=== PATIENT | female | born 1980 | race African-American/Black ===

== ENCOUNTER 2019-03-09 15:44 | Emergency (ER) | payer OTHER ==
[~2019-03-09] VITALS: Ht 154.9 cm; Wt 81.7 kg
[2019-03-09] MEDS ORDERED: DEXACIDIN EYE DR5 ML OPHTHALMIC (17:09)
[2019-03-09 17:44] VITALS: BP 114/72
== END 2019-03-09 17:45 | disposition home or self-care (01) ==
LOC: ER 15:44
DX: S05.01XA Injury of conjunctiva and corneal abrasion without foreign body, right eye, initial encounter (principal); H57.11 Ocular pain, right eye; Z88.0 Allergy status to penicillin; W51.XXXA Accidental striking against or bumped into by another person, initial encounter; Y93.89 Activity, other specified; Y92.89 Other specified places as the place of occurrence of the external cause; Y99.8 Other external cause status

== ENCOUNTER → 2020-03-25 | Outpatient (CLI) | payer BC ==
[~2020-03-25] MED LIST: DEXACIDIN EYE DR5 ML OPHTHALMIC
--- NOTE | 2020-03-31 10:43 | PATH ---
[facility] [address] [place] [address] PATHOLOGY RPT PROCEDURE Name: PAULOJANEE Room #: REG JACK Collado#: [id number] Admission: 03/25/20 Date of : 82 Discharge: Report #: [id number] Path Case #: [id number] [facility] Accession Number: [id number] . 01 Material submitted: . breast - RIGHT BREAST, SUB AREOLAR, 12:00. Modifiers: right, 12:00 . 01 Clinical history: . RIGHT BREAST MASS . 02 Diagnosis: Right breast, subareolar, needle core biopsy: - Minute fragments of intraductal papilloma. - Negative for atypia or malignancy. . (IUV:mml; 03/29/2020) QL 03/29/2020 1136 Local . 02 Comment: Dr. Itzel Lind has seen new accounts banking representative slides of this case and concurs with my diagnosis. . (IUV:mml; 03/29/2020) . 02 Electronically signed: . Kylah Tavarez MD, Pathologist NPI- [id number] . 01 Gross description: . Received in formalin labeled "Janee Cabrera, right breast BX 12:00 SA" are multiple cylindrical lord-yellow soft tissue cores measuring in aggregate 0.8 x 0.6 x 0.2 cm. The specimen is submitted entirely in cassettes A1-A3. The specimen is removed from the patient at 1037 and placed in formalin at an unspecified time on 03/25/2020. The specimen is removed from formalin at 1850 on 03/26/2020. ([facility]; 03/26/2020) [facility] 03/26/2020 1122 Local . 02 Pathologist provided ICD-10: D24.1 . 02 CPT . 163480 Specimen Comment: A courtesy copy of this report has been sent to [phone], [phone] Specimen Comment: [phone] Specimen Comment: Report sent to / Specimen Comment: A duplicate report has been [place] [address] PATHOLOGY RPT PROCEDURE Name: JANEE CABRERA VANDANACasper Room #: REG CLSacha Collado#: [id number] Admission: 03/25/20 Date of : 82 Discharge: Report #: [id number] Path Case #: [id number] updates. Performed at: [address] [facility], [place], [place] [id number] MD Jordi Novak MD Phone: [phone] Performed at: [address] [id number] MD Kylah Tavarez MD Phone: [phone]
== END | disposition home or self-care (01) ==
LOC: ULTRA 09:40
PROVIDERS: ATTEND Nurse Practitioner
DX: N63.12 Unspecified lump in the right breast, upper inner quadrant (principal); D24.1 Benign neoplasm of right breast; Z79.899 Other long term (current) drug therapy

== ENCOUNTER → 2020-05-05 | Outpatient (CLI) | payer BC, OTHER | LOC: LAB 11:24 | PROVIDERS: ATTEND Nurse Practitioner | DX: Z20.828 Contact with and (suspected) exposure to other viral communicable diseases (principal) ==